=== PATIENT | female | born 1955 | race Hispanic/Latino ===

== ENCOUNTER → 2017-04-09 | Outpatient (CLI) | payer OTHER | END | disposition home or self-care (01) | LOC: RAH 12:38 | PROVIDERS: ATTEND Internal Medicine | DX: Z12.31 Encounter for screening mammogram for malignant neoplasm of breast (principal) | CPT/HCPCS: 77067 ==

== ENCOUNTER → 2018-04-18 | Outpatient (CLI) | payer OTHER | END | disposition home or self-care (01) | LOC: RAH 10:14 | PROVIDERS: ATTEND Internal Medicine | DX: Z12.31 Encounter for screening mammogram for malignant neoplasm of breast (principal) | CPT/HCPCS: 77067 ==

== ENCOUNTER → 2019-05-17 | Outpatient (CLI) | payer OTHER | END | disposition home or self-care (01) | LOC: RAH 08:02 | PROVIDERS: ATTEND Internal Medicine | DX: Z12.31 Encounter for screening mammogram for malignant neoplasm of breast (principal) | CPT/HCPCS: 77067 ==

== ENCOUNTER → 2020-02-02 | Outpatient (CLI) | payer OTHER | END | disposition home or self-care (01) | LOC: RAH 09:51 | PROVIDERS: ATTEND Internal Medicine | DX: M47.816 Spondylosis without myelopathy or radiculopathy, lumbar region (principal); M54.31 Sciatica, right side; M54.6 Pain in thoracic spine; M25.551 Pain in right hip | CPT/HCPCS: 72100; 73501 ==

== ENCOUNTER 2021-04-28 13:00 | Observation (INO) | payer OTHER ==
[~2021-04-28] VITALS: Ht 157.5 cm; Wt 88.4 kg
[2021-04-28 11:47] LABS: BASOPHILS % (AUTO) 0.6 % (0.0-5.0); EOSINOPHILS % (AUTO) 3.7 % (0.0-8.0); HEMATOCRIT 34.2 % (36-48); MEAN CORPUSCULAR HEMOGLOBIN 30.2 pg (27.0-33.0); MEAN CORPUSCULAR HGB CONC 34.5 g/dL (32.0-36.0); MEAN CORPUSCULAR VOLUME 87.5 fL (79-99); MONOCYTES % (AUTO) 5.3 % (3.0-13.0); NEUTROPHILS % (AUTO) 64.3 % (40.0-77.0); PLATELET COUNT (AUTO) 194 K/uL (130-400); RED BLOOD CELL COUNT(AUTO) 3.91 MIL/uL (4.00-5.50); RED CELL DISTRIBUTION WIDTH 12.9 % (11.0-15.5); WHITE BLOOD COUNT (AUTO) 9.1 K/uL (4.8-10.8)
[2021-04-28 11:55] LABS: POTASSIUM 3.8 mmol/L (3.5-5.1)
[2021-04-30 09:09] VITALS: BP 186/83
[2021-04-30] MEDS ORDERED: GABA300C PO (09:55)
[2021-04-30] MEDS ORDERED: LORA10TA7 PO (09:55)
[2021-04-30] MEDS ORDERED: OMEP40CA21 PO (09:55)
[2021-04-30] MEDS ORDERED: AEC81 PO (09:55)
[2021-04-30] MEDS ORDERED: ATOR10TA69 PO (09:55)
[2021-05-01] VITALS (26 sets, daily range): BP systolic 138–177; BP diastolic 60–96
[2021-05-01] MEDS ORDERED: LACTATED RINGERS 1000ML 1,000 ML IV ONE (06:19)
[2021-05-01] MEDS ORDERED: CEFAZOLIN SODIUM 1 GM VIAL ONE ×2 (06:19→06:44)
[2021-05-01] MEDS ORDERED: BUPIVACAINE/EPI/PF 0.25% 30ML VIAL IJ ONE (06:44)
[2021-05-01] MEDS ORDERED: THROMBIN-JMI 20000 UNIT KIT TP ONE (06:45)
[2021-05-01] MEDS ORDERED: PROPOFOL 10 MG/ML 20ML VIAL IV ONE (06:47)
[2021-05-01] MEDS ORDERED: GLYCOPYRROLATE 1 MG/5 ML SYRINGE ONE (06:47)
[2021-05-01] MEDS ORDERED: LIDOCAINE PF 100MG/5ML (2%) SYRINGE 5ML ONE (06:47)
[2021-05-01] MEDS ORDERED: SUCCINYLCHOLINE CHLORIDE 20 MG/ML 10 ML VIAL ONE (06:47)
[2021-05-01] MEDS ORDERED: DEXAMETHASONE SOD PHOSPHATE 10MG/ML 1ML VIAL ONE ×2 (06:47→09:52)
[2021-05-01] MEDS ORDERED: ONDANSETRON 4MG INJ ONE ×2 (06:48→12:03)
[2021-05-01] MEDS ORDERED: ROCURONIUM 10MG/1ML SYR 10 MG/ML ML ONE (06:48)
[2021-05-01] MEDS ORDERED: NEOSTIGMINE 5MG/5ML SYR IV ONE (06:48)
[2021-05-01] MEDS ORDERED: MIDAZOLAM HCL 1 MG/ML 2ML VIAL ONE (06:48)
[2021-05-01] MEDS ORDERED: FENTANYL CITRATE PF 50 MCG/1 ML 2ML VIAL ONE ×3 (06:48→11:53)
[2021-05-01 07:09] LABS: CREATININE 0.5 mg/dL (0.5-1.5); POTASSIUM 3.7 mmol/L (3.5-5.1)
[2021-05-01] MEDS ORDERED: GENTAMICIN 80 MG/NS 100 ML PB 100 ML IV ONE (09:20)
[2021-05-01] MEDS ORDERED: MANNITOL 20% 500ML BAG 500 ML IV ONE (09:45)
[2021-05-01] MEDS ORDERED: CEFAZOLIN SODIUM 2 GM VIAL IV ONE (09:50)
[2021-05-01] MEDS ORDERED: ARTIFICIAL TEARS 3.5 GM OINTMENT ONE (10:04)
[2021-05-01] MEDS: DEXAMETHASONE SOD PHOSPHATE 4 MG/ML 1ML VIAL IVP SCH ×3 (12:30→23:24)
[2021-05-01] MEDS: LACTATED RINGERS 1000ML 1,000 ML IV SCH ×2 (12:30→23:24)
[2021-05-01] MEDS ORDERED: 0.9%NACL 10ML VIAL IVP PRN (12:30)
[2021-05-01] MEDS ORDERED: PROMETHAZINE HCL 25 MG/ML 1ML AMPULE IM PRN (12:30)
[2021-05-01] MEDS: CEFAZOLIN SODIUM 1 GM VIAL IVP SCH ×2 (12:30→20:01)
[2021-05-01] MEDS ORDERED: MORPHINE 2 MG SYG IVP PRN (12:30)
[2021-05-01] MEDS: HYDROCODONE/ACETAMINOPHEN 5/325 MG TAB PO PRN (20:39)
[2021-05-01] MEDS ORDERED: ASPIRIN 81 MG EC TAB PO SCH (21:00)
[2021-05-01] MEDS ORDERED: ATORVASTATIN 10 MG TABLET PO SCH (21:00)
[2021-05-01] MEDS ORDERED: GABAPENTIN 300 MG CAPSULE PO SCH (21:00)
[2021-05-02] MEDS: CEFAZOLIN SODIUM 1 GM VIAL IVP SCH (01:06)
[2021-05-02] MEDS: HYDROCODONE/ACETAMINOPHEN 5/325 MG TAB PO PRN (01:09)
[2021-05-02 04:28] VITALS: BP 155/80
[2021-05-02] MEDS: DEXAMETHASONE SOD PHOSPHATE 4 MG/ML 1ML VIAL IVP SCH (05:58)
[2021-05-02] MEDS ORDERED: PANTOPRAZOLE 40 MG TAB DR PO SCH (07:30)
[2021-05-02 08:02] VITALS: BP 152/71
[2021-05-02] MEDS ORDERED: LORATADINE 10 MG TABLET PO SCH (09:00)
== END 2021-05-02 12:52 | disposition home or self-care (01) ==
LOC: DAHIP 05-01 05:49 → 3AH 05-01 13:21
PROVIDERS: ADMIT Neurological Surgery; ATTEND Neurological Surgery
DX: M48.02 Spinal stenosis, cervical region (principal); Z20.822 Contact with and (suspected) exposure to COVID-19; M54.12 Radiculopathy, cervical region; G99.2 Myelopathy in diseases classified elsewhere; M25.78 Osteophyte, vertebrae; I87.2 Venous insufficiency (chronic) (peripheral); K21.9 Gastro-esophageal reflux disease without esophagitis; E66.01 Morbid (severe) obesity due to excess calories; Z79.899 Other long term (current) drug therapy; Z93.3 Colostomy status; Z98.1 Arthrodesis status
CPT/HCPCS: 22551; 22845; 36415 ×2; 71045; 72020; 80048; 80051; 85025; 87635; 96374; 96375; 96376 ×2; A4215; A4221; A4222; A4223; A4344; A4510; A4600; A4649 ×2; A4663; A6010; A6260; C1713; G0378 ×24; J0330; J0690 ×4; J1100 ×5; J1580; J2001; J2250; J2405 ×2; J2704; J2710; J3010 ×3; J3490 ×3; J7030; J7120

== ENCOUNTER → 2021-06-09 | Outpatient (CLI) | payer OTHER ==
[~2021-06-09] MED LIST: AEC81 PO; ATOR10TA69 PO; GABA300C PO; LORA10TA7 PO; OMEP40CA21 PO
== END | disposition home or self-care (01) ==
LOC: CANPRECLI → RAH 13:42
PROVIDERS: ATTEND Internal Medicine
DX: N60.02 Solitary cyst of left breast (principal); N64.4 Mastodynia
CPT/HCPCS: 76641; 77066

== ENCOUNTER 2022-01-05 11:00 | Observation (INO) | payer OTHER ==
[~2022-01-05] VITALS: Ht 157.5 cm; Wt 91.2 kg
[2022-01-05 12:07] LABS: BASOPHILS % (AUTO) 1.1 % (0.0-5.0); EOSINOPHILS % (AUTO) 2.9 % (0.0-8.0); HEMATOCRIT 34.9 % (36-48); LYMPHOCYTES % (AUTO) 31.7 % (21.0-51.0); MEAN CORPUSCULAR HEMOGLOBIN 31.6 pg (27.0-33.0); MEAN CORPUSCULAR VOLUME 90.4 fL (79-99); MONOCYTES % (AUTO) 5.8 % (3.0-13.0); NEUTROPHILS % (AUTO) 58.3 % (40.0-77.0); PLATELET COUNT (AUTO) 227 K/uL (130-400); RED BLOOD CELL COUNT(AUTO) 3.86 MIL/uL (4.00-5.50); RED CELL DISTRIBUTION WIDTH 12.8 % (11.0-15.5); WHITE BLOOD COUNT (AUTO) 8.5 K/uL (4.8-10.8)
[2022-01-06 13:01] VITALS: BP 138/57
[2022-01-07] VITALS (24 sets, daily range): BP systolic 83–155; BP diastolic 37–78
[2022-01-07] MEDS ORDERED: BUPIVACAINE/EPI/PF 0.5% 30ML VIAL IJ ONE (05:04)
[2022-01-07] MEDS ORDERED: MORPHINE PF 100MG/10ML AMP IV ONE (05:04)
[2022-01-07] MEDS ORDERED: CEFAZOLIN SODIUM 1 GM VIAL ONE ×2 (05:04→17:15)
[2022-01-07] MEDS ORDERED: THROMBIN-JMI 20000 UNIT KIT TP ONE (05:06)
[2022-01-07] MEDS: CEFAZOLIN SODIUM 1 GM VIAL IVP SCH ×2 (06:00→09:30)
[2022-01-07] MEDS ORDERED: MAGNESIUM SULFATE 1 GM/2 ML VIAL ONE (07:03)
[2022-01-07] MEDS ORDERED: KETAMINE 50MG/ML SYRINGE 50 MG/ML DISP.SYRIN IV ONE (07:03)
[2022-01-07] MEDS ORDERED: DEXMEDETOMIDINE HCL 200 MCG/2 ML VIAL IV ONE (07:03)
[2022-01-07] MEDS ORDERED: LACTATED RINGERS 1000ML 1,000 ML IV ONE (07:30)
[2022-01-07] MEDS ORDERED: NEOSTIGMINE 5MG/5ML SYR IV ONE (11:39)
[2022-01-07] MEDS ORDERED: GLYCOPYRROLATE 1 MG/5 ML SYRINGE ONE (11:39)
[2022-01-07] MEDS ORDERED: PROMETHAZINE HCL 25 MG/ML 1ML AMPULE IM PRN (12:00)
[2022-01-07] MEDS ORDERED: 0.9%NACL 10ML VIAL IVP PRN (12:00)
[2022-01-07] MEDS: CEFAZOLIN SODIUM 2 GM VIAL IVP SCH ×2 (12:00→19:38)
[2022-01-07] MEDS: LACTATED RINGERS 1000ML 1,000 ML IV SCH (12:00)
[2022-01-07] MEDS ORDERED: HYDROCODONE/ACETAMINOPHEN 5/325 MG TAB PO PRN (12:00)
[2022-01-07] MEDS ORDERED: MORPHINE 2 MG SYG IVP PRN (12:00)
[2022-01-07] MEDS: DEXAMETHASONE SOD PHOSPHATE 4 MG/ML 1ML VIAL IVP SCH ×3 (13:32→23:02)
[2022-01-07] MEDS ORDERED: GABAPENTIN 300 MG CAPSULE PO SCH (21:00)
[2022-01-07] MEDS ORDERED: ASPIRIN 81 MG EC TAB PO SCH (21:00)
[2022-01-07] MEDS ORDERED: ATORVASTATIN 10 MG TABLET PO SCH (21:00)
[2022-01-08] VITALS: BP 129/54
[2022-01-08] MEDS: LACTATED RINGERS 1000ML 1,000 ML IV SCH (00:05)
[2022-01-08] MEDS: CEFAZOLIN SODIUM 2 GM VIAL IVP SCH (03:16)
[2022-01-08 04:00] VITALS: BP 116/50
[2022-01-08] MEDS: DEXAMETHASONE SOD PHOSPHATE 4 MG/ML 1ML VIAL IVP SCH (05:07)
[2022-01-08 08:00] VITALS: BP 128/67
[2022-01-08] MEDS ORDERED: LORATADINE 10 MG TABLET PO SCH (09:00)
[2022-01-08] MEDS ORDERED: PANTOPRAZOLE 40 MG TAB DR PO SCH (09:00)
== END 2022-01-08 10:09 | disposition home or self-care (01) ==
LOC: DAHIP 01-07 05:56 → 4AH 01-07 12:09
PROVIDERS: ADMIT Neurological Surgery; ATTEND Neurological Surgery
DX: M48.061 Spinal stenosis, lumbar region without neurogenic claudication (principal); Z20.822 Contact with and (suspected) exposure to COVID-19; E78.5 Hyperlipidemia, unspecified; N18.6 End stage renal disease; K21.9 Gastro-esophageal reflux disease without esophagitis; Z99.2 Dependence on renal dialysis; Z93.3 Colostomy status; Z98.1 Arthrodesis status; Z79.899 Other long term (current) drug therapy
CPT/HCPCS: 80051; 85025; 87426; 36415; 71045; 63047; 63048; 96374; 96376 ×2; 96375; 72020; J1100 ×4; G0378 ×22; A4510; A4663; J7120 ×3; A4344; J0690 ×3; J3490 ×4; J2710; J3475; J2274; A4649 ×2; A4215; A4223; A4222; A4221; A4600

== ENCOUNTER 2022-03-16 13:33 | Emergency (ER) | payer OTHER ==
[~2022-03-16] VITALS: Ht 157.5 cm; Wt 88.5 kg
[~2022-03-16 13:33] MED LIST changes: -AEC81 PO
[2022-03-16 14:54] VITALS: BP 131/62
[2022-03-16 15:14] LABS: APPEARANCE,URINE CLOUDY (CLEAR); BILIRUBIN,URINE NEGATIVE (NEGATIVE); COLOR,URINE YELLOW (YELLOW); GLUCOSE, URINE (UA) NEGATIVE (NEGATIVE); KETONES,URINE NEGATIVE (NEGATIVE); LEUKOCYTE ESTERASE ,URINE 500 Leu/uL (NEGATIVE); NITRATE,URINE NEGATIVE (NEGATIVE); OCCULT BLOOD,URINE MODERATE (NEGATIVE); PH,URINE 5.5 (5.0-8.0); PROTEIN,URINE 10 mg/dL (NEGATIVE); UROBILINOGEN,URINE 0.2 mg/dL (0.2-1.0)
[2022-03-16 15:20] LABS: BACTERIA,URINE FEW /HPF (None Seen); MUCUS,URINE RARE LPF (None Seen); SQUAMOUS EPITHELIAL CELL,UR RARE /HPF (0-2); WBC,URINE >100 /HPF (0-1)
[2022-03-16 16:10] LABS: BASOPHILS % (AUTO) 0.6 % (0.0-5.0); EOSINOPHILS % (AUTO) 3.6 % (0.0-8.0); HEMATOCRIT 35.5 % (36-48); LYMPHOCYTES % (AUTO) 22.5 % (21.0-51.0); MEAN CORPUSCULAR HEMOGLOBIN 31.2 pg (27.0-33.0); MEAN CORPUSCULAR HGB CONC 34.4 g/dL (32.0-36.0); MEAN CORPUSCULAR VOLUME 90.8 fL (79-99); MONOCYTES % (AUTO) 6.9 % (3.0-13.0); PLATELET COUNT (AUTO) 219 K/uL (130-400); RED BLOOD CELL COUNT(AUTO) 3.91 MIL/uL (4.00-5.50); RED CELL DISTRIBUTION WIDTH 12.9 % (11.0-15.5); WHITE BLOOD COUNT (AUTO) 9.4 K/uL (4.8-10.8)
[2022-03-16 16:17] LABS: CREATININE 0.6 mg/dL (0.5-1.5); POTASSIUM 3.9 mmol/L (3.5-5.1)
[2022-03-16 16:22] LABS: ALBUMIN 3.3 g/dL (3.5-5.0); TOTAL PROTEIN, SERUM 6.9 g/dL (6.0-8.3)
[2022-03-16] MEDS ORDERED: PHEN-847 PO (16:50)
[2022-03-16] MEDS ORDERED: ACET-66 PO (16:50)
[2022-03-16] MEDS ORDERED: CEPH500B PO (16:50)
[2022-03-16] MEDS ORDERED: KETOROLAC 30MG VIAL (30MG/ML) IM ONE (17:00)
[2022-03-16] MEDS ORDERED: PHENAZOPYRIDINE HCL 200 MG TABLET PO ONE (17:00)
[2022-03-16] MEDS ORDERED: CEFTRIAXONE 1G VIAL IM ONE (17:00)
== END 2022-03-16 17:02 | disposition home or self-care (01) ==
LOC: EDH 13:33
DX: N39.0 Urinary tract infection, site not specified (principal); E78.00 Pure hypercholesterolemia, unspecified; Z79.899 Other long term (current) drug therapy; Z98.890 Other specified postprocedural states
CPT/HCPCS: 99284; 80053; 85025; 87077; 87088; 87186; 81001; 36415; 96372; J0696; J1885

== ENCOUNTER → 2022-07-10 | Outpatient (CLI) | payer OTHER ==
[~2022-07-10] MED LIST changes: +ACET-66 PO; +CEPH500B PO; +PHEN-847 PO
== END | disposition home or self-care (01) ==
LOC: RAH 14:09
PROVIDERS: ATTEND Internal Medicine
DX: Z12.31 Encounter for screening mammogram for malignant neoplasm of breast (principal)
CPT/HCPCS: 77067

== ENCOUNTER → 2022-10-26 | Outpatient (CLI) | payer OTHER | END | disposition home or self-care (01) | LOC: RAH 14:23 | PROVIDERS: ATTEND Physical Medicine & Rehabilitation | DX: M43.16 Spondylolisthesis, lumbar region (principal); M99.03 Segmental and somatic dysfunction of lumbar region; M48.061 Spinal stenosis, lumbar region without neurogenic claudication | CPT/HCPCS: 72114 ==

== ENCOUNTER → 2022-12-09 | Outpatient (CLI) | payer OTHER | END | disposition home or self-care (01) | LOC: RAH 15:12 | DX: N28.1 Cyst of kidney, acquired (principal) | CPT/HCPCS: 76770 ==

== ENCOUNTER 2023-03-28 16:02 | Emergency (ER) | payer OTHER ==
[~2023-03-28] VITALS: Ht 157.5 cm; Wt 91.6 kg
[2023-03-28 16:03] VITALS: BP 162/61; PULSE 77; RESP 18
[2023-03-28 16:23] LABS: RAPID GROUP A STREP negative (NEGATIVE)
[2023-03-28 16:27] LABS: SARS-CoV-2, RNA, NAAT NEGATIVE SARS CoV-2 (NEGATIVE)
[2023-03-28 16:32] LABS: INFLUENZA TYPE B Negative For Type B (NEGATIVE)
[2023-03-28 16:46] LABS: INFLUENZA TYPE A Positive For Type A (NEGATIVE)
[2023-03-28] MEDS ORDERED: OSEL75 PO (16:49)
[2023-03-28] MEDS ORDERED: BENZ-39 PO (16:50)
== END 2023-03-28 17:03 | disposition home or self-care (01) ==
LOC: EDH 16:02
DX: J10.1 Influenza due to other identified influenza virus with other respiratory manifestations (principal); E78.00 Pure hypercholesterolemia, unspecified; Z20.822 Contact with and (suspected) exposure to COVID-19
CPT/HCPCS: 87635; 87804; 87880

== ENCOUNTER → 2023-08-09 | Outpatient (CLI) | payer OTHER ==
[~2023-08-09] MED LIST changes: +BENZ-39 PO; +OSEL75 PO
== END | disposition home or self-care (01) ==
LOC: RAH 15:02
PROVIDERS: ATTEND Nurse Practitioner Family
DX: Z12.31 Encounter for screening mammogram for malignant neoplasm of breast (principal); R92.323 Mammographic fibroglandular density, bilateral breasts
CPT/HCPCS: 77067

== ENCOUNTER → 2024-01-06 | Outpatient (CLI) | payer OTHER ==
[~2024-01-06] MED LIST changes: +MACR100 PO; +ONDA-243 PO
[2024-01-06 14:38] LABS: BASOPHILS # (AUTO) 0.14 K/uL (0.00-0.20); BASOPHILS % (AUTO) 1.2 % (0.0-5.0); EOSINOPHILS # (AUTO) 0.19 K/uL (0.00-0.70); EOSINOPHILS % (AUTO) 1.6 % (0.0-8.0); HEMATOCRIT 36.6 % (36-48); IMMATURE GRANULOCYTE ABSOLUTE 0.06 K/uL (0-1); LYMPHOCYTES # (AUTO) 4.9 K/uL (1.0-4.8); LYMPHOCYTES % (AUTO) 40.3 % (21.0-51.0); MEAN CORPUSCULAR HEMOGLOBIN 31.9 pg (27.0-33.0); MEAN CORPUSCULAR HGB CONC 34.4 g/dL (32.0-36.0); MEAN CORPUSCULAR VOLUME 92.7 fL (79-99); MONOCYTES # (AUTO) 0.7 K/uL (0.1-1.0); MONOCYTES % (AUTO) 5.7 % (3.0-13.0); NEUTROPHILS # (AUTO) 6.1 K/uL (1.8-7.7); NEUTROPHILS % (AUTO) 50.7 % (40.0-77.0); PLATELET COUNT (AUTO) 253 K/uL (130-400); RED BLOOD CELL COUNT(AUTO) 3.95 MIL/uL (4.00-5.50); RED CELL DISTRIBUTION WIDTH 13.2 % (11.0-15.5)
[2024-01-06 14:54] LABS: POTASSIUM 3.3 mmol/L (3.5-5.1)
== END | disposition home or self-care (01) ==
LOC: LAB 13:31
PROVIDERS: ATTEND Urology
DX: N28.1 Cyst of kidney, acquired (principal)
CPT/HCPCS: 36415; 80048; 85025

== ENCOUNTER → 2024-01-10 | Outpatient (CLI) | payer OTHER ==
[~2024-01-10] MED LIST changes: +IOHEXOL 350 MG/ML 100ML INFUS..BTL IV ONE
== END | disposition home or self-care (01) ==
LOC: RAH 10:24
PROVIDERS: ATTEND Urology
DX: N28.1 Cyst of kidney, acquired (principal); K44.9 Diaphragmatic hernia without obstruction or gangrene; K42.9 Umbilical hernia without obstruction or gangrene; K57.30 Diverticulosis of large intestine without perforation or abscess without bleeding; N32.89 Other specified disorders of bladder; I25.10 Atherosclerotic heart disease of native coronary artery without angina pectoris; M47.815 Spondylosis without myelopathy or radiculopathy, thoracolumbar region
CPT/HCPCS: 74178; Q9967

== ENCOUNTER 2024-07-28 22:21 | Emergency (ER) | payer OTHER ==
[~2024-07-28] VITALS: Ht 157.5 cm; Wt 90.4 kg
[~2024-07-28 22:21] MED LIST changes: -IOHEXOL 350 MG/ML 100ML INFUS..BTL IV ONE
[2024-07-28 23:24] LABS: BASOPHILS # (AUTO) 0.09 K/uL (0.00-0.20); BASOPHILS % (AUTO) 0.9 % (0.0-5.0); EOSINOPHILS % (AUTO) 2.1 % (0.0-8.0); HEMATOCRIT 35.9 % (36-48); IMMATURE GRANULOCYTE ABSOLUTE 0.03 K/uL (0-1); LYMPHOCYTES # (AUTO) 2.9 K/uL (1.0-4.8); LYMPHOCYTES % (AUTO) 29.9 % (21.0-51.0); MEAN CORPUSCULAR HEMOGLOBIN 31.9 pg (27.0-33.0); MEAN CORPUSCULAR HGB CONC 35.1 g/dL (32.0-36.0); MEAN CORPUSCULAR VOLUME 90.9 fL (79-99); MONOCYTES # (AUTO) 0.6 K/uL (0.1-1.0); MONOCYTES % (AUTO) 6.2 % (3.0-13.0); NEUTROPHILS # (AUTO) 5.9 K/uL (1.8-7.7); NEUTROPHILS % (AUTO) 60.6 % (40.0-77.0); PLATELET COUNT (AUTO) 243 K/uL (130-400); RED BLOOD CELL COUNT(AUTO) 3.95 MIL/uL (4.00-5.50); WHITE BLOOD COUNT (AUTO) 9.7 K/uL (4.8-10.8)
[2024-07-28 23:32] LABS: CREATININE 0.6 mg/dL (0.5-1.0); POTASSIUM 3.9 mmol/L (3.5-5.1)
--- NOTE | 2024-07-28 23:34 | ERN ---
ED Note History of Present Illness Stated Complaint: LEG PAIN Chief Complaint: Lower Extremity Pain/Injury Time Seen by MD: 22:27 Dictation: This is a 69-year-old female who presented to the emergency room complaining of right lower extremity pain which has progressively gotten worse over the past 1 week she reported that her calf was painful and it is also warm to touch. No history of any injury. Temperature 98.3 pulse 70 respirations 19 blood pressure 169/70 with a pulse oximetry of 98% on room air Chronic medical problems include hyperlipidemia and gastritis Allergies: Coded Allergies: No Known Drug Allergies (Unverified Allergy, Unknown, 04/30/21) Home Meds Active Scripts Ondansetron (Ondansetron Odt) 4 Mg Tab.rapdis, 4 MG PO BID for 7 Days, #14 TAB Prov:MARYANN GODWIN 09/09/23 Nitrofurantoin/Nitrofuran Mac (Macrobid) 100 Mg Cap, 100 MG PO BID for 5 Days, #10 CAP Prov:MARYANN GODWIN 09/09/23 Benzonatate (Tessalon Perles) 100 Mg Cap, 100 MG PO TID for cough, #30 CAP 0 Refills Prov:PETERSON HUDSON 03/28/23 Oseltamivir Phosphate (Tamiflu) 75 Mg Cap, 75 MG PO BID for 5 Days, #10 CAP Prov:PETERSON HUDSON 03/28/23 Acetaminophen (Tylenol) 500 Mg Tab, 500 MG PO Q4PRN PRN for PAIN, #30 TAB Prov:ELANA PATTERSON [facility] 03/16/22 Phenazopyridine HCl (Pyridium) 200 Mg Tab, 200 MG PO TIDPC, #6 TAB TAKE WITH FOOD TO PREVENT STOMACH UPSET. Prov:ELANA PATTERSON [facility] 03/16/22 Cephalexin Monohydrate (Keflex) 500 Mg Cap, 500 MG PO QID for 7 Days, #28 CAP Prov:ELANA PATTERSON [facility] 03/16/22 Reported Medications Gabapentin (Neurontin) 300 Mg Capsule, 300 MG PO HS, CAP 04/30/21 Atorvastatin Calcium (Atorvastatin Calcium) 10 Mg Tablet, 10 MG PO HS, TAB 04/30/21 Loratadine (Loratadine) 10 Mg Tablet, 10 MG PO AM, TAB 04/30/21 Omeprazole (Omeprazole) 40 Mg Capsule., 40 MG PO AM, CAP 04/30/21 Past Medical History Past Medical History: High Cholesterol Additional Past Medical Hx: NEUROPATHY Surgical History: Other Surgical History Other: CERVICAL SURGERY. LUMBAR LAMINECTOMY-01/23/2022 Family History: Negative Social History: Negative History: Not Applicable RN Note Reviewed/Agreed w/PFSH: Yes Review of System Dictation Constitutional: Negative for fever,chills, and weight loss Eyes: Negative for injury, pain,redness, and discharge ENT: Negative for injury,pain or swelling Cardiovascular: Negative for chest pain, palpitations, and edema Respiratory: Negative for shortness of breath, cough, and wheezing, Abdomen/GI: Negative for abdominal pain, nausea, vomiting, diarrhea, and constipation Back: Negative for injury and pain : Negative for injury, bleeding and discharge MS/Extremity: Negative for injury and deformity Skin: Negative for rash, and discoloration Neuro: Negative for headache, weakness, numbness, tingling, and seizure Psych: Negative for suicide ideation, homicidal ideation, and hallucinations Initial Vital Sign VS Vital Signs Date Time Temp Pulse Resp B/P (MAP) Pulse Ox O2 Delivery O2 Flow Rate FiO2 07/28/24 22:24 98.2 70 19 169/70 98 Room Air 07/28/24 22:50 0 21 Physical Exam Dictation General: awake, alert, NAD morbidly obese female Head/Face: Normocephalic, atraumatic Eyes: PERRL, EOMI, vision at baseline ENT: oral cavity clear, TMs clear, no signs of infection Neck: Trachea midline, supple, no nuchal rigidity Cardiovascular: RRR, normal S1/S2, No MRGs, no JVD Respiratory: CTAB, no respiratory distress, No rales or wheezes Abdomen: Soft, non-tender, non-distended, normal bowel sounds, no guarding or rebound. Skin: Warm, dry, normal turgor, no rash MS/Extremity: Pulses equal, no cyanosis, neurovascular intact, FROM right knee and right hip have some pain and tenderness with movement and walking. Neuro: COAx4, GCS 15, strength 5/5, CN 2-12 intact, normal cerebellar exam, normal gait, Psych: Normal behavior, mood, and affect normal Extremities-trace edema without any palpable cords, Homans sign is negative right calf area not warm to touch no tenderness to palpation no erythema or obvious signs of infection noted. Results (Laboratory/Radiology) Laboratory/Radiology Laboratory Tests Test 07/28/24 23:11 White Blood Count 9.7 K/uL (4.8-10.8) Red Blood Count 3.95 MIL/uL (4.00-5.50) L Hemoglobin 12.6 g/dL (12.0-16.0) Hematocrit 35.9 % (36-48) L Mean Corpuscular Volume 90.9 fL (79-99) Mean Corpuscular Hemoglobin 31.9 pg (27.0-33.0) Mean Corpuscular Hemoglobin Concent 35.1 g/dL (32.0-36.0) Red Cell Distribution Width 13.0 % (11.0-15.5) Platelet Count 243 K/uL (130-400) Mean Platelet Volume 9.8 fL (7.5-10.5) Immature Granulocyte % (Auto) 0.3 % (0-1) Neutrophils (%) (Auto) 60.6 % (40.0-77.0) Lymphocytes (%) (Auto) 29.9 % (21.0-51.0) Monocytes (%) (Auto) 6.2 % (3.0-13.0) Eosinophils (%) (Auto) 2.1 % (0.0-8.0) Basophils (%) (Auto) 0.9 % (0.0-5.0) Neutrophils # (Auto) 5.9 K/uL (1.8-7.7) Lymphocytes # (Auto) 2.9 K/uL (1.0-4.8) Monocytes # (Auto) 0.6 K/uL (0.1-1.0) Eosinophils # (Auto) 0.20 K/uL (0.00-0.70) Basophils # (Auto) 0.09 K/uL (0.00-0.20) Absolute Immature Granulocyte (auto 0.03 K/uL (0-1) Nucleated Red Blood Cells 0.0 % (0.0-0.19) Prothrombin Time 10.5 SEC (9.6-11.6) Prothromb Time International Ratio 0.99 (0.85-1.15) Activated Partial Thromboplast Time 26.1 SEC (26.3-35.5) L Sodium Level 139 mmol/L (136-145) Potassium Level 3.9 mmol/L (3.5-5.1) Chloride Level 103 mmol/L (101-111) Carbon Dioxide Level 30 mmol/L (21-32) Blood Urea Nitrogen 14 mg/dL (7-18) Creatinine 0.6 mg/dL (0.5-1.0) Glomerular Filtration Rate Calc 97 mL/min (>90) Random Glucose 111 mg/dL (70-105) H Total Calcium 8.7 mg/dL (8.5-10.1) Labs Reviewed?: Yes ED Course ED Course Orders Procedure Category Date Status Time Cbc With Differential LAB 07/28/24 Complete 23:09 Basic Metabolic Panel LAB 07/28/24 Complete 23:09 Pt And Ptt LAB 07/28/24 Complete 23:09 Us Venous Doppler US 07/28/24 Taken Unilateral 23:09 Ketorolac PHA 07/29/24 Complete Tromethamine 30mg/Ml 00:00 Vital Signs Date Time Temp Pulse Resp B/P (MAP) Pulse Ox O2 Delivery O2 Flow Rate FiO2 07/28/24 22:50 98.4 72 18 162/68 98 Room Air* 0 21 07/28/24 22:24 98.2 70 19 169/70 98 Room Air We will perform diagnostic labs, advanced imaging and administer medications according to the patient's complaint. Once the results are available, will review and personally interpreted the labs to rule out any acute life- threatening emergency the trach require immediate intervention and treatment. I will then re-evaluate the patient after treatment and diagnostic exams have return to determine whether the patient requires any further testing, can safely be discharged home or need further admission to hospital for additional treatment and evaluation. CBC BNP 7 is within normal limits Venous Doppler study of right lower extremity is negative for DVT. I updated the patient and her family member on available labs and venous Doppler study and explained to her that this perhaps could be arthritic pain which sometimes could be worsened due to obesity. I instructed that she follow up with orthopedic surgery and she indicated that she has an appointment on the of this month I counseled her on use of NSAIDs at her age and to avoid any other NSAIDs or aspirin due to interactions as well as increased risk of complications including ulcers bleeding nephrotoxicity hepatotoxicity etcetera. She verbalized full understanding. Medical Decision Making MDM MDM: Differential diagnosis: Right leg DVT, cellulitis, right knee arthritis, Rationale: Tests considered and ordered secondary to shared decision making include: Previous outside records reviewed: Old ER visits. Risk of complication and/or morbidity or mortality of patient management: None Medications-Per medication reconciliation Need for hospitalization: Patient does not meet criteria for hospitalization. Need for emergency major/minor surgery: No There are no social concerns with this patient. Prescription drug management Prescriptions will include symptomatic care Patient's prior external medical records from other ER visits were reviewed by me as indicated. Prior testing and results from previous visits were reviewed. Prior tests were taken into account with medical decision making and resource utilization, independent historian/historians were used to obtain complete medical history. I independently interpreted the test that were performed, results were reviewed by me and considered findings on radiology if ordered. Medical management and examination interpretation discussions were had by me with other qualified healthcare professionals as indicated for the patient's care. Problem List Problem List: (1) Arthritis of right knee DX & DISP Disposition: Discharge Departure Impression: Primary Impression: Arthritis of right knee Condition: Stable Scripts Meloxicam (Meloxicam) 7.5 Mg Tablet 1 TAB PO DAILY for 10 Days, #10 TAB 0 Refills Prov: YOLA SAGASTUME MD 07/29/24 Additional Instructions: Patient and the caregiver have been informed of all the diagnostic tests and the imaging conducted during the today's visit to the emergency room and has verbalized understanding of the results I have personally reviewed and interpreted all diagnostic exams performed here in the ER today as well as the vital signs documented by the nursing staff. The patient is now being discharged to home and should follow up with the primary care physician or the specialist as directed by the ER staff. Follow-up with primary care provider in 1 to 2 days. Take medications as directed here in the emergency room. Okay to continue home medications unless otherwise discussed during your visit in the emergency room today. Return to your nearest emergency room if symptoms worsen or if there is no improvement. Call 911 if you need immediate assistance. Take Tylenol or Motrin [id number] as needed and if no contraindications are present. Increase oral hydration. A wound culture or urine culture was ordered here in the emergency room department please follow-up with primary care provider and advise them to get repeat ports from our facility. If you had any Hector wrap/splints that were applied here, please do not remove them until you see your primary care or specialty. Referrals: SEJAL HENLEY MD (PCP) YOLA SAGASTUME MD July 28, 2024 23:34
[2024-07-28 23:36] LABS: INR 0.99 (0.85-1.15); PROTHROMBIN TIME 10.5 SEC (9.6-11.6)
[2024-07-28 23:37] LABS: PARTIAL THROMBOPLASTIN TIME 26.1 SEC (26.3-35.5)
[2024-07-29] MEDS ORDERED: MELO-106 PO (00:07)
[2024-07-29] MEDS: ketOROlac 30MG VIAL (30MG/ML) IM ONE (00:12)
[2024-07-29 01:08] VITALS: BP 160/64; PULSE 76; RESP 20; TEMP 98.5; O2SAT 97
--- NOTE | 2024-07-29 09:37 | HMCIMG ---
Exam Type: US VENOUS DOPPLER UNILATERAL Clinical Information: RLE PAIN Comparison: None Findings: The examination shows normal deep venous system. There is normal compressibility at all levels. There is no intraluminal clot. There is no occlusion. Adequate response is obtained on augmentation. Impression: No evidence of DVT.
== END 2024-07-29 01:21 | disposition home or self-care (01) ==
LOC: EDH 22:21
DX: M17.11 Unilateral primary osteoarthritis, right knee (principal); E78.00 Pure hypercholesterolemia, unspecified; Z79.899 Other long term (current) drug therapy
CPT/HCPCS: 99285; 93971; 80048; 85025; 85610; 85730; 36415; 96372; J1885

== ENCOUNTER → 2024-08-17 | Outpatient (CLI) | payer OTHER ==
[~2024-08-17] MED LIST changes: +MELO-106 PO
--- NOTE | 2024-08-18 10:06 | HMCIMG ---
MAMMO SCREENING BILATERAL HISTORY: Screening mammogram. COMPARISON: 08/17/2024 TECHNIQUE: Bilateral screening mammogram with CAD was performed with craniocaudal and mediolateral oblique projections. FINDINGS: There are scattered areas of fibroglandular density. There is no evidence of a dominant mass, or suspicious microcalcification. There is no evidence of nipple retraction or skin thickening. IMPRESSION: 1. Stable mammogram. Patient was entered into a reminder system with a target due date for their next mammogram. BI-RADS: CATEGORY 2: BENIGN FINDINGS Recommend monthly self breast exam as well as annual clinical examination. A negative x-ray should not delay biopsy if a dominant or clinically suspicious mass is present, since 8-10% of cancers are not identified by mammography. Dense breasts particularly, may obscure an underlying neoplasm. Some of these may be detected clinically and therefore, clinical examination is an essential part of breast evaluation.
== END | disposition home or self-care (01) ==
LOC: RAH 14:37
PROVIDERS: ATTEND Internal Medicine
DX: Z12.31 Encounter for screening mammogram for malignant neoplasm of breast (principal); R92.323 Mammographic fibroglandular density, bilateral breasts
CPT/HCPCS: 77067

== ENCOUNTER 2024-12-31 20:32 | Emergency (ER) | payer OTHER ==
[~2024-12-31] VITALS: Ht 157.5 cm; Wt 89.8 kg
--- NOTE | 2024-12-31 20:40 | NUR ---
UA COLLECTED AND SENT
--- NOTE | 2024-12-31 22:14 | ERN ---
General Chief Complaint: Mechanical Fall Stated Complaint: FALL, RT ARM, RT LEG AND SIDE PAIN Time Seen by MD: 20:37 Time Seen by Midlevel: 20:37 Source: patient History of Present Illness Initial Comments 69-year-old female presents to the emergency department after she sustained a mechanical ground level fall three days ago. Patient states she fell after she tripped over her carpet. Reports falling onto her right side. Denies any head injury or loss of consciousness. Denies being on any blood thinners. The patient has pain to the right intercostal region, right shoulder and right elbow. Allergies: Coded Allergies: No Known Drug Allergies (Unverified Allergy, Unknown, 04/30/21) Home Meds Active Scripts Meloxicam (Meloxicam) 7.5 Mg Tablet, 1 TAB PO DAILY for 10 Days, #10 TAB 0 Refills Prov:YOLA SAGASTUME MD 07/29/24 Ondansetron (Ondansetron Odt) 4 Mg Tab.rapdis, 4 MG PO BID for 7 Days, #14 TAB Prov:MARYANN GODWIN PAC 09/09/23 Nitrofurantoin/Nitrofuran Mac (Macrobid) 100 Mg Cap, 100 MG PO BID for 5 Days, #10 CAP Prov:MARYANN GODWIN PAC 09/09/23 Benzonatate (Tessalon Perles) 100 Mg Cap, 100 MG PO TID for cough, #30 CAP 0 Refills Prov:PETERSON HUDSON 03/28/23 Oseltamivir Phosphate (Tamiflu) 75 Mg Cap, 75 MG PO BID for 5 Days, #10 CAP Prov:PETERSON HUDSON 03/28/23 Acetaminophen (Tylenol) 500 Mg Tab, 500 MG PO Q4PRN PRN for PAIN, #30 TAB Prov:ELANA PATTERSON [facility] 03/16/22 Phenazopyridine HCl (Pyridium) 200 Mg Tab, 200 MG PO TIDPC, #6 TAB TAKE WITH FOOD TO PREVENT STOMACH UPSET. Prov:ELANA PATTERSON [facility] 03/16/22 Cephalexin Monohydrate (Keflex) 500 Mg Cap, 500 MG PO QID for 7 Days, #28 CAP Prov:ELANA PATTERSON [facility] 03/16/22 Reported Medications Gabapentin (Neurontin) 300 Mg Capsule, 300 MG PO HS, CAP 04/30/21 Atorvastatin Calcium (Atorvastatin Calcium) 10 Mg Tablet, 10 MG PO HS, TAB 04/30/21 Loratadine (Loratadine) 10 Mg Tablet, 10 MG PO AM, TAB 04/30/21 Omeprazole (Omeprazole) 40 Mg Capsule.dr, 40 MG PO AM, CAP 04/30/21 Past Medical History Past Medical History: High Cholesterol, Other Medical History Other: NEUROPATHY, ESBL Past Surgical History: Other Surgical History Other: CERVICAL SURGERY. LUMBAR LAMINECTOMY-01/23/2022 Family History Family History: Negative Social History Social History: Negative Female( History) History: Not Applicable ROS Dictation CONSTITUTIONAL: Negative except for HPI HEAD/FACE: Negative except for HPI EENT: Negative except for HPI RESPIRATORY: Negative except for HPI GASTROINTESTINAL/ABDOMINAL: Negative except for HPI GENITOURINARY: Negative except for HPI MUSCULOSKELETAL: Negative except for HPI INTEGUMENTARY: Negative except for HPI NEUROLOGICAL/PSYCH: Negative except for HPI HEMATOLOGIC/LYMPHATIC: Negative except for HPI All Systems Negative, Except as noted above. 13 point review of systems assessed and all negative except for above. Physical Exam Physical Exam Dictation Vital Signs reviewed General Appearance: Alert, oriented x 3, no acute distress, well developed, nourished. Head and Face: non-traumatic. Eyes: PERRL, pink conjunctivas, eyelid no trauma, anterior chamber with arcus senilis. Ears: Pinnas intact and no signs of trauma or erythema ear canals clear and no discharge TM no erythema Nose: No discharge, no bleeding. Oropharynx: Mouth normal, tongue pink, pharynx clear,no erythema, tonsils no exudates, no abscesses noted, mucous membrane moist Neck: Supple, non-tender, no thyromegaly, no masses, no JVD, no bruits Breast:Deferred Chest:No tenderness, no crepitus, no paradoxical movement, no retractions Lungs:Clear, well-ventilated, symmetric, no rales, no wheezing, no rhonchi, no stridor, good breath sounds bilaterally Heart: Regular rate, regular rhythm, no murmur, no gallops Vascular: no peripheral edema, Abdomen: Soft, positive bowel sounds, nondistended, no guarding, nontender, no rebound, no masses no hepatomegaly, no splenomegaly, no Delgado's sign, no hernias. Rectal: Deferred Genital: Deferred Neurological: Normal speech, motor function intact, sensory function intact Musculoskeletal: Neck nontender, full range of motion, back nontender, full range of motion, Extremities: nontender, full range of motion Skin: Color pink, dry, no turgor, no rash, no lacerations, no abrasions, no contusions. Lymphatic: Deferred MDM MDM: 69-year-old female presenting to the ER status post fall. She reports pain to her right shoulder, right chest wall, and right elbow. X-rays do not show any evidence of an acute fracture. Patient will be discharged home with supportive management. Differential diagnosis: Fall, contusion, fracture, dislocation There are no social concerns with this patient. Prescription drug management Prescriptions will include: An Medical management and examination interpretation discussions were had by me with other qualified healthcare professionals as indicated for the patient's care. ED Course Orders Procedure Category Date Status Time Ribs Uni Rt W Pa RAD 12/31/24 Taken Chest 3+ Vws 21:27 Shoulder Comp 2+Vws Rt RAD 12/31/24 Taken 21:27 Elbow Comp 3+Vws Rt RAD 12/31/24 Taken 21:27 12 Lead Ekg Tracing- EKG 12/31/24 Logged Technical 21:27 Vital Signs Date Time Temp Pulse Resp B/P (MAP) Pulse Ox O2 Delivery O2 Flow Rate FiO2 12/31/24 20:56 98.2 60 16 173/49 98 Room Air* 0 21 12/31/24 20:33 98.4 67 16 171/96 99 Room Air DX & DISP Disposition: Discharge Departure Impression: Primary Impression: Contusion of right chest wall Additional Impressions: Right shoulder strain, Contusion of right elbow Condition: Stable Additional Instructions: Your x-rays do not show any evidence of an acute fracture or dislocation. You may take Tylenol and Motrin as needed. Follow up with your primary care doctor next week if you have persistent pain. Return to the ER for any new or worsening symptoms. Referrals: SEJAL HENLEY MD (PCP) Time of Disposition: 22:37 I have reviewed the case, and I agree with, Diagnosis and Plan I performed the substantive portion of the visit. I have reviewed and personally made and approve the management plan that is documented in the note by myself or the BREANNE. I acknowledge for responsibility for the patient's management plan. MARYANN GODWIN PAC Dec 31, 2024 22:14
--- NOTE | 2024-12-31 22:34 | HMCIMG ---
EXAM: CR Right Elbow, 3 views. CLINICAL HISTORY: Fall. COMPARISON: None provided. FINDINGS: No acute fracture or aggressive appearing osseous lesion. Joint spaces are within normal limits. No radiographic evidence of joint effusion. The soft tissues are unremarkable. IMPRESSION: No acute bony abnormality is evident. /[place]
[2024-12-31 22:39] VITALS: BP 127/50; PULSE 75; RESP 16; TEMP 98.3; O2SAT 98
--- NOTE | 2024-12-31 23:11 | HMCIMG ---
EXAM: CR Chest and Right Ribs, 5 Views. CLINICAL HISTORY: Fall. COMPARISON: None provided. FINDINGS: The lungs show no infiltrates or other acute findings. No pleural effusion or pneumothorax. The cardiomediastinal silhouette is within normal limits. Nondisplaced acute fracture around the anterior ends of the right 4th, 5th, 6th, and 7th ribs. IMPRESSION: Nondisplaced acute fracture around the anterior ends of the right 4th, 5th, 6th, and 7th ribs. No acute cardiopulmonary pathology is evident. /[place]
--- NOTE | 2024-12-31 23:15 | HMCIMG ---
EXAM: CR Right Shoulder, 2 views. CLINICAL HISTORY: Fall. COMPARISON: None provided. FINDINGS: No acute fracture or aggressive appearing osseous lesion. Mild osteoarthritis in the acromioclavicular and glenohumeral joints. The soft tissues are unremarkable. IMPRESSION: No acute bony abnormality is evident. Mild osteoarthritis. /[place]
--- NOTE | 2025-01-01 02:38 | EKG ---
[facility] Test Date: 2024-12-31 Test Time: 21:35:07 Pat Name: OTILIA GANNON Department: ED Room: Gender: F Premises Technician: [id number] : 1955 Requested By: MARYANN GODWIN Order Number: [id number] Reading MD: Ariela King Measurements Intervals [place] Rate: 56 P: 38 MI: 182 QRS: 25 QRSD: 77 T: 41 QT: 404 QTc: 390 Interpretive Statements Sinus rhythm Low voltage, precordial leads No previous ECG available for comparison Electronically Signed On 01-03-2025 10:14:20 CDT by Ariela King Please click the below link to view image of tracing.
== END 2024-12-31 22:48 | disposition home or self-care (01) ==
LOC: EDH 20:32
DX: S46.911A Strain of unspecified muscle, fascia and tendon at shoulder and upper arm level, right arm, initial encounter (principal); S50.01XA Contusion of right elbow, initial encounter; S20.211A Contusion of right front wall of thorax, initial encounter; E78.00 Pure hypercholesterolemia, unspecified; G62.9 Polyneuropathy, unspecified; Z79.1 Long term (current) use of non-steroidal anti-inflammatories (NSAID); W01.0XXA Fall on same level from slipping, tripping and stumbling without subsequent striking against object, initial encounter; X58.XXXA Exposure to other specified factors, initial encounter; Y93.89 Activity, other specified; Y92.89 Other specified places as the place of occurrence of the external cause; Y99.8 Other external cause status
CPT/HCPCS: 71101; 73030; 73080; 93005; 99284